=== PATIENT | female | born 1985 | race Caucasian/White ===

== ENCOUNTER 2018-11-03 05:30 | Day surgery (SDC) | payer OTHER ==
[~2018-11-03] VITALS: Ht 162.6 cm; Wt 87.7 kg
[2018-11-03] MEDS ORDERED: [UNRECOGNIZED DRUG - OTHER] (05:52)
[2018-11-03] MEDS ORDERED: PROBIOTIC FORMU1 CAP (05:52)
[2018-11-03 06:13] VITALS: BP 117/87; PULSE 69; TEMP 97.2
[2018-11-03 08:00] VITALS: BP 110/68; PULSE 80; TEMP 94.5
[2018-11-03 08:15] VITALS: BP 112/72; PULSE 82
[2018-11-03 08:30] VITALS: BP 112/78; PULSE 80
[2018-11-03 08:45] VITALS: BP 116/80; PULSE 84
--- NOTE | 2018-11-03 09:34 | NUR ---
PATIENT ARRIVES FROM [place] VIA CART TO BAY 7. POST OP VS STARTED. DENIES PAIN. CALL LIGHT WITHIN REACH. PHYSICIAN AT BEDSIDE, DISCHARGE INSTRUCTIONS GIVEN TO PATIENT AND FAMILY.
--- NOTE | 2018-11-03 09:35 | NUR ---
PEPSI AND CRACERS GIVEN. DENIES PAIN. DENIES QUESTIONS. AT BEDSIDE. CALL LIGHT WITHIN REACH. WILL CONTINUE TO MONITOR.
--- NOTE | 2018-11-03 09:37 | NUR ---
PATIENT AMBULATED TO BATHROOM WITH STEADY GAIT WITH NURSE AT BEDSIDE. RETURNED TO BED. CALL LIGHT WITHIN REACH.
--- NOTE | 2018-11-03 10:28 | NUR ---
PATIENT DISCHARGED TO HOME VIA WHEELCHAIR TO PERSONAL TRUCK WITH . IV DC'D. DISCHARGE INSTRUCTIONS GIVEN, VERBALIZED UNDERSTANDING. PERCOCET PRESCRIPTION GIVEN TO PATIENT BY PHYSICIAN.
== END 2018-11-03 10:30 | disposition home or self-care (01) ==
LOC: SDCO 05:30
DX: M72.2 Plantar fascial fibromatosis (principal); M77.32 Calcaneal spur, left foot; M77.31 Calcaneal spur, right foot; Z82.49 Family history of ischemic heart disease and other diseases of the circulatory system
CPT/HCPCS: J0690; J2250; J2405; J2704; J3010; J3301; J7120